=== PATIENT | female | born 1980 | race American Indian/Alaskan Native ===

== ENCOUNTER 2017-12-03 08:23 | Day surgery (SDC) | payer OTHER ==
[~2017-12-03 08:23] MED LIST: ANCEF/STERILE WATER 2 GM/20 ML IV NR
--- NOTE | 2017-12-03 10:17 | Progress Note ---
Subjective Date of service: 12/03/17 Interval history: Ext discussion on limitations of stone visibility, locatioi, reflux, reimplant pain issues. understand wants to proceed. wants to try biplanar fluro to see if can vis. ext discsussion on outcomes including obstruction / sepsis. also disc meds, States no ibuprofen/advil/aleve, naproxes, aspirin and no other blood thinners for over 7 days.
[2017-12-03] MEDS ORDERED: NACL BACTERIOSTATIC INFILTRATI ONE (10:18)
--- NOTE | 2017-12-03 10:32 | Anesthesia Consultation ---
Anesthesia Consult and Med Hx - Airway Anesthetic Teeth Evaluation: Good ROM Head & Neck: Adequate Mental/Hyoid Distance: Adequate Mallampati Class: Class II Intubation Access Assessment: Good - Pulmonary Exam CTA: Yes - Cardiac Exam Cardiac Exam: RRR - Pre-Operative Health Status ASA Pre-Surgery Classification: ASA3 Proposed Anesthetic Plan: MAC - Pulmonary Hx Smoking: No Hx Sleep Apnea: Yes (DX SLEEP APNEA WITH CPAP USE.) - Cardiovascular System Hx Hypertension: Yes (X 20 YRS) - Central Nervous System Hx Seizures: Yes (X1- NEVER ON MEDS) Hx Back Pain: Yes - Hematic Hx Sickle Cell Disease: No (SC TRAIT) - Other Systems Hx Cancer: No
[2017-12-03] MEDS ORDERED: ZOFRAN IV PRN (10:33)
[2017-12-03] MEDS ORDERED: DILAUDID IV PRN (10:33)
--- NOTE | 2017-12-03 10:33 | Anesthesia Day of Surgery ---
Anesthesia Day of Surgery - Day of Surgery Patient Examined: Yes Patient H&P Reviewed: Yes Patient is NPO: Yes
[2017-12-03 10:36] LABS: Hemoglobin 11.5 gm/dl (10.1-14.3)
[2017-12-03] MEDS ORDERED: XYLOCAINE 1% MPF 5 mL INFILTRATI ONE (10:38)
--- NOTE | 2017-12-03 10:55 | XRay Report ---
ABDOMEN RADIOGRAPHS INDICATION: Preoperative for lithotripsy on 12/03/2017. Renal stone. COMPARISON: None similar. FINDINGS: Frontal abdominal radiographs demonstrate nonobstructive bowel gas pattern. No definite radiopaque renal calculi. 2 nonspecific surgical clips project over the right kidney superiorly. Left hemipelvic surgical clips and few pelvic phleboliths. Lung bases incompletely imaged. Intact bones. CONCLUSION: Findings, as above. Thank you for the opportunity to participate in this patient's care.
[2017-12-03] MEDS ORDERED: XYLOCAINE 1% MPF 5 mL INFILTRATI NR (11:00)
[2017-12-03] MEDS ORDERED: ROCEPHIN IV NR (11:00)
[2017-12-03] MEDS ORDERED: NACL 0.9% 1000 ML 1,000 ML IV SCH (11:00)
[2017-12-03] MEDS ORDERED: LACTATED RINGERS 1,000 ML IV SCH (11:00)
[2017-12-03] MEDS ORDERED: ROCEPHIN 500 MG in NACL 0.9% 50 ML IV NR (11:00)
[2017-12-03] MEDS ORDERED: NACL 0.9% IV NR (11:00)
[2017-12-03] MEDS ORDERED: cefTRIAXone 1 GM in NACL 0.9% 20 ML IV NR (11:00)
[2017-12-03] MEDS ORDERED: DIPRIVAN 10 MG/ML IV ONE (11:41)
[2017-12-03] MEDS ORDERED: XYLOCAINE MPF 2% ONE (11:41)
[2017-12-03] MEDS ORDERED: SUBLIMAZE ONE (11:42)
[2017-12-03 14:41] VITALS: BP 136/89
--- NOTE | 2017-12-03 17:33 | Short Stay Summary ---
Short Stay Documentation Date of service: 12/03/17 - History H&P: obtained from office - Allergies and Medications Current Medications: Allergies linezolid [From Zyvox] Allergy (Verified 12/03/17 14:25) Unknown STATES SHE THINKS THE ALLERGY IS TO ZYVOX, BUT NOT SURE. STATES IT IS AN ANTIBIOTIC THAT BEGINS WITH Z AND IT IS NOT ZITHROMAX. IT WAS AN IV MED. morphine Allergy (Verified 11/26/17 12:06) Itching SKIN GLUE Allergy (Uncoded 11/26/17 12:06) ITCHING AND RASH Home Medications Medication Instructions Recorded Confirmed Last Taken Type Atenolol [Tenormin] 50 mg PO DAILY 11/26/17 12/03/17 12/03/17 07:30 History Ibuprofen [Motrin] 800 mg PO Q8HR PRN 11/26/17 12/03/17 11/05/17 History Naproxen Sodium [Aleve] 220 mg PO PRN PRN 11/26/17 12/03/17 11/19/17 History Nitrofurantoin G[place]/M-Cryst 100 mg PO QHS 11/26/17 12/03/17 12/02/17 History [Macrobid CAP] - Brief post op/procedure progress note Date of procedure: 12/03/17 Pre-op diagnosis: left renal stone 6mm Post-op diagnosis: same Procedure: left renal eswl Anesthesia: GETA Findings: not visible, contrast give still not visible ~25-30minutes looking Surgeon: CHARLEY MANN Estimated blood loss: minimal Pathology: none Condition: stable - Hospital course Hospital course: [facility] - Disposition Condition at discharge: Good Disposition: DC-01 TO HOME OR SELFCARE Short Stay Discharge Plan Activity: advance as tolerated Follow up with: ALICE ELMORE MD [Staff Physician] - 7 Days
== END 2017-12-03 12:54 | disposition home or self-care (01) ==
LOC: OR 08:23
PROVIDERS: ATTEND Urology
DX: N20.0 Calculus of kidney (principal); I10 Essential (primary) hypertension; D57.3 Sickle-cell trait; G47.30 Sleep apnea, unspecified; Z99.89 Dependence on other enabling machines and devices; Z88.6 Allergy status to analgesic agent; Z88.8 Allergy status to other drugs, medicaments and biological substances; Z53.8 Procedure and treatment not carried out for other reasons; Z86.73 Personal history of transient ischemic attack (TIA), and cerebral infarction without residual deficits
CPT/HCPCS: 36415; 74018; 85014; 85018; J0696; J2704; J3010; J7030; Q9967

== ENCOUNTER 2018-03-31 09:13 | Outpatient (CLI) | payer OTHER ==
--- NOTE | 2018-03-31 11:20 | Nuclear Medicine Report ---
NUCLEAR MEDICINE RENAL SCAN ROUTINE History: Vesicoureteral reflux, recurrent UTIs Findings: The posterior flow images demonstrate normal and symmetric perfusion to the kidneys. The posterior function images demonstrate normal uptake and excretion of the radiotracer bilaterally. Time to peak uptake is approximately 6-7 minutes bilaterally. Normal excretory curve. Split function measures 50% left kidney and 50% right kidney. IMPRESSION: Normal exam.
--- NOTE | 2018-03-31 14:07 | Fluoroscopy Report ---
FLUOROSCOPY CYSTOGRAM VOIDING HISTORY: Vesicoureteral reflux, recurrent UTIs. DESCRIPTION OF PROCEDURE: Informed consent was obtained. Sterile technique was utilized. 44 fluoroscopic images were captured during this exam. A Schroeder catheter was inserted for retrograde administration of 400 cc of water-soluble contrast. There is normal filling of the bladder throughout this exam. No evidence for mass or filling defect. There were occasional episodes of reflux into the distal left ureter during the bladder filling phase of this exam. During voiding, there was severe reflux into the left renal collecting system with dilatation of the left ureter, left renal pelvis and left renal calyces. There was complete emptying of the bladder although there was retained contrast agent in the dilated left renal collecting system which drained slowly. IMPRESSION: Severe left vesicoureteral reflux.
== END 2018-03-31 09:14 | disposition home or self-care (01) ==
LOC: FLUORO 09:13
PROVIDERS: ATTEND Urology
DX: N13.731 Vesicoureteral-reflux with reflux nephropathy with hydroureter, unilateral (principal); I10 Essential (primary) hypertension; F32.9 Major depressive disorder, single episode, unspecified; Z90.49 Acquired absence of other specified parts of digestive tract
CPT/HCPCS: 51600; 74455; 78707; A9562; Q9958

== ENCOUNTER 2018-11-02 07:16 | Emergency (ER) | payer OTHER ==
[2018-11-02 07:24] VITALS: BP 140/103
[2018-11-02 08:07] LABS: Basophils # (Auto) 0.1 K/mm3 (0.0-0.1); Eosinophils # (Auto) 0.1 K/mm3 (0.0-0.4); Eosinophils % (Auto) 2.1 % (0.0-4.3); Hematocrit 37.1 % (30.3-42.9); Hemoglobin 12.4 gm/dl (10.1-14.3); Lymphocytes % (Auto) 29.5 % (13.4-35.0); Mean Corpuscular HGB Conc 33 % (30-34); Mean Corpuscular Volume 81 fl (79-97); Monocytes # (Auto) 0.3 K/mm3 (0.0-0.8); Monocytes % (Auto) 4.7 % (0.0-7.3); Platelet Count 394 K/mm3 (140-440); Red Blood Count 4.56 M/mm3 (3.65-5.03); Red Cell Distribution Width 15.2 % (13.2-15.2)
[2018-11-02 08:27] LABS: Albumin 3.9 g/dL (3.9-5); BUN/Creatinine Ratio 17; Blood Urea Nitrogen 15 mg/dL (7-17); Hemolysis Index 302
[2018-11-02 08:43] LABS: Bacteria,Urine 2+ /HPF (Negative); Bilirubin,Urine NEG (Negative); Blood,Urine NEG (Negative); Color,Urine Yellow (Yellow); Mucus,Urine FEW /HPF; Protein,Urine <15 mg/dL mg/dL (Negative); Urobilinogen,Urine < 2.0 mg/dL (<2.0)
[2018-11-02 08:44] LABS: HCG Qualitative,Urine Negative (Negative)
[2018-11-02] MEDS ORDERED: NORCO 5/325 PO ONE (08:45)
[2018-11-02] MEDS ORDERED: ROCEPHIN IM ONE (08:45)
[2018-11-02] MEDS ORDERED: XYLOCAINE 1% MPF 5 mL INFILTRATI ONE (08:45)
[2018-11-02 08:46] LABS: Alanine Aminotransferase 20 units/L (7-56)
--- NOTE | 2018-11-02 08:46 | Emergency Department Report ---
ED Dysuria HPI - HPI Chief Complaint: Abdominal Pain Stated Complaint: LEFT SIDE BACK PAIN/DIARRHEA Time Seen by Provider: 11/02/18 08:38 Duration: 3 Days Location of Discomfort: Flank Severity: Moderate (left) Symptoms: Dysuria: Yes, Frequency: Yes, Suprapubic Pain: Yes, Flank Pain: Yes, Fever: No, Hematuria: No, Abdominal Pain: No, Previous UTI's: Yes Other History: Patient is a 38-year-old -[place] female who comes to the ER today with left flank pain. She has a history of urinary reflux and is on chronic Macrobid. She is complaining of left flank pain, dysuria, and suprapubic pain. She is not concerned for STDs. ED Review of Systems ROS: Stated complaint: LEFT SIDE BACK PAIN/DIARRHEA Other details as noted in HPI Comment: All other systems reviewed and negative Constitutional: no symptoms reported Eyes: denies: eye pain ENT: denies: ear pain Respiratory: denies: orthopnea Cardiovascular: denies: palpitations Endocrine: denies: see HPI Gastrointestinal: as per HPI, abdominal pain, diarrhea. denies: nausea, vomiting, constipation, hematemesis Genitourinary: as per HPI, urgency, dysuria, frequency, abnormal menses. denies: hematuria, discharge Musculoskeletal: as per HPI, back pain Skin: denies: rash Neurological: denies: headache Psychiatric: denies: depression Hematological/Lymphatic: denies: easy bleeding ED Past Medical Hx - Past Medical History Hx Hypertension: Yes (X 20 YRS) Hx Pulmonary Embolism: Yes Hx Sickle Cell Disease: No (SC TRAIT) Hx Seizures: Yes (X1- NEVER ON MEDS) Hx Kidney Stones: Yes Hx HIV: No Additional medical history: brain aneurysm- urinary reflux treated at [facility] on chronic macrobid - Surgical History Hx Cholecystectomy: Yes Additional Surgical History: ovary removed - Family History Family history: no significant - Social History Smoking Status: Never Smoker Substance Use Type: None - Medications Home Medications: Home Medications Medication Instructions Recorded Confirmed Last Taken Type Atenolol [Tenormin] 50 mg PO DAILY 11/26/17 12/03/17 12/03/17 07:30 History Nitrofurantoin Saunders/M-Cryst 100 mg PO QHS 11/26/17 12/03/17 12/02/17 History [Macrobid CAP] Sulfamethoxazole/Trimethoprim 1 each PO BID #10 tablet 11/02/18 Unknown Rx [Bactrim DS TAB] Dysuria Exam - Exam General: Vital signs noted. No distress. Alert and acting appropriately. Exam: Yes Moist Mucous Membranes, Yes CVA Tenderness, No Abdominal Tenderness, No Rigidity or Guarding Exam: s1s2. lungs cta. abd non tender on exam. ambulatory without fever. a/o X 4 Labs: Lab Results 11/02/18 11/02/18 11/02/18 Range/Units 07:56 07:56 08:29 WBC 6.7 (4.5-11.0) K/mm3 RBC 4.56 (3.65-5.03) M/mm3 Hgb 12.4 (10.1-14.3) gm/dl Hct 37.1 (30.3-42.9) % MCV 81 (79-97) fl MCH 27 L (28-32) pg MCHC 33 (30-34) % RDW 15.2 (13.2-15.2) % Plt Count 394 (140-440) K/mm3 Lymph % (Auto) 29.5 (13.4-35.0) % Saunders % (Auto) 4.7 (0.0-7.3) % Eos % (Auto) 2.1 (0.0-4.3) % Baso % (Auto) 1.0 (0.0-1.8) % Lymph # 2.0 (1.2-5.4) K/mm3 Saunders # 0.3 (0.0-0.8) K/mm3 Eos # 0.1 (0.0-0.4) K/mm3 Baso # 0.1 (0.0-0.1) K/mm3 Seg Neutrophils % 62.7 (40.0-70.0) % Seg Neutrophils # 4.2 (1.8-7.7) K/mm3 Sodium 140 (137-145) mmol/L Chloride 102.8 (98-107) mmol/L Carbon Dioxide 26 (22-30) mmol/L BUN 15 (7-17) mg/dL Creatinine 0.9 (0.7-1.2) mg/dL Estimated GFR > 60 ml/min BUN/Creatinine Ratio 17 % Glucose 120 H (65-100) mg/dL Calcium 9.0 (8.4-10.2) mg/dL Total Bilirubin 0.20 (0.1-1.2) mg/dL Total Protein 7.7 (6.3-8.2) g/dL Albumin 3.9 (3.9-5) g/dL Albumin/Globulin Ratio 1.0 % Lipase 48 (13-60) units/L Urine Color Yellow (Yellow) Urine Turbidity Clear (Clear) Urine pH 7.0 (5.0-7.0) Ur Specific [place] 1.009 (1.003-1.030) Urine Protein <15 mg/dl (Negative) mg/dL Urine Glucose (UA) Neg (Negative) mg/dL Urine Ketones Neg (Negative) mg/dL Urine Blood Neg (Negative) Urine Nitrite Neg (Negative) Urine Bilirubin Neg (Negative) Urine Urobilinogen < 2.0 (<2.0) mg/dL Ur Leukocyte Esterase Lg (Negative) Urine WBC (Auto) 36.0 H (0.0-6.0) /HPF Urine RBC (Auto) 6.0 (0.0-6.0) /HPF U Epithel Cells (Auto) 8.0 (0-13.0) /HPF Urine Bacteria (Auto) 2+ (Negative) /HPF Urine Mucus Few /HPF Urine HCG, Qual Negative (Negative) ED Course Vital Signs 11/02/18 07:18 Temperature 98.8 F Pulse Rate 69 Respiratory 18 Rate Blood Pressure 140/103 O2 Sat by Pulse 98 Oximetry ED Medical Decision Making - Lab Data Result diagrams: 11/02/18 07:56 11/02/18 07:56 - Medical Decision Making Labs 11/02/18 11/02/18 11/02/18 07:56 07:56 08:29 WBC 6.7 RBC 4.56 Hgb 12.4 Hct 37.1 MCV 81 MCH 27 L MCHC 33 RDW 15.2 Plt Count 394 Lymph % (Auto) 29.5 Saunders % (Auto) 4.7 Eos % (Auto) 2.1 Baso % (Auto) 1.0 Lymph # 2.0 Saunders # 0.3 Eos # 0.1 Baso # 0.1 Seg Neutrophils % 62.7 Seg Neutrophils # 4.2 Sodium 140 Potassium 5.0 Chloride 102.8 Carbon Dioxide 26 Anion Gap 16 BUN 15 Creatinine 0.9 Estimated GFR > 60 BUN/Creatinine Ratio 17 Glucose 120 H Calcium 9.0 Total Bilirubin 0.20 AST 30 ALT 20 Alkaline Phosphatase 86 Total Protein 7.7 Albumin 3.9 Albumin/Globulin Ratio 1.0 Lipase 48 Urine Color Yellow Urine Turbidity Clear Urine pH 7.0 Ur Specific [place] 1.009 Urine Protein <15 mg/dl Urine Glucose (UA) Neg Urine Ketones Neg Urine Blood Neg Urine Nitrite Neg Urine Bilirubin Neg Urine Urobilinogen < 2.0 Ur Leukocyte Esterase Lg Urine WBC (Auto) 36.0 H Urine RBC (Auto) 6.0 U Epithel Cells (Auto) 8.0 Urine Bacteria (Auto) 2+ Urine Mucus Few Urine HCG, Qual Negative ua noted sent for culture - told pt to have her uro MD call us for results will treat with bactrim - hold macrobid follow up with uro at [facility] - Differential Diagnosis ro pylo Critical care attestation.: If time is entered above; I have spent that time in minutes in the direct care of this critically ill patient, excluding procedure time. ED Disposition Clinical Impression: UTI (urinary tract infection) Disposition: TO HOME OR SELFCARE Is pt being admited?: No Does the pt Need Aspirin: No Condition: Stable Instructions: Urinary Tract Infection in Women (ED) Additional Instructions: do not take macrobid for now have urologist call us for culture reports bactrim as ordered today drink over 2 gallons of water per day return to ER if fever which does not resolve with motrin or tylenol follow up with your urologist daniella referrals given below activity and diet as tolerated cranberry juice may help Prescriptions: Sulfamethoxazole/Trimethoprim [Bactrim DS TAB] 1 each PO BID #10 tablet Referrals: [facility] [Other] - 3-5 Days ORIANA COTTON MD [Staff Physician] - 3-5 Days ALICE ELMORE MD [Staff Physician] - 3-5 Days SID SHEIKH MD [Staff Physician] - 3-5 Days Time of Disposition: 08:47
== END 2018-11-02 09:09 | disposition home or self-care (01) ==
LOC: ED 07:16
DX: N39.0 Urinary tract infection, site not specified (principal); I10 Essential (primary) hypertension; D57.3 Sickle-cell trait; Z90.49 Acquired absence of other specified parts of digestive tract; Z88.6 Allergy status to analgesic agent; Z91.09 Other allergy status, other than to drugs and biological substances; Z88.8 Allergy status to other drugs, medicaments and biological substances
CPT/HCPCS: 36415; 80053; 81001; 81025; 83690; 85025; 87086; 96372; 99283; J0696